=== PATIENT | female | born 1990 | race American Indian/Alaskan Native ===

== ENCOUNTER 2018-09-07 13:10 | Emergency (ER) | payer OTHER ==
[~2018-09-07] VITALS: Ht 162.6 cm; Wt 55.3 kg
== END 2018-09-07 14:45 | disposition home or self-care (01) ==
LOC: ER 13:10
DX: M79.662 Pain in left lower leg (principal); G89.11 Acute pain due to trauma

== ENCOUNTER 2021-09-16 18:33 | Emergency (ER) | payer OTHER ==
[~2021-09-16] VITALS: Ht 162.6 cm; Wt 59.0 kg
== END 2021-09-16 22:22 | disposition home or self-care (01) ==
LOC: ER 18:33
DX: R10.2 Pelvic and perineal pain (principal); N83.201 Unspecified ovarian cyst, right side

== ENCOUNTER 2022-08-20 18:06 | Emergency (ER) | payer OTHER ==
[~2022-08-20] VITALS: Ht 162.6 cm; Wt 58.5 kg
== END 2022-08-20 23:33 | disposition home or self-care (01) ==
LOC: ER 18:06
DX: O20.9 Hemorrhage in early pregnancy, unspecified (principal); Z3A.10 10 weeks gestation of pregnancy

== ENCOUNTER 2022-10-07 14:06 | Outpatient (CLI) | payer OTHER | END 2022-10-07 17:31 | disposition home or self-care (01) | LOC: PRENATAL 14:06 | PROVIDERS: ATTEND Obstetrics & Gynecology Maternal & Fetal Medicine | DX: O36.80X0 Pregnancy with inconclusive fetal viability, not applicable or unspecified (principal); Z36.9 Encounter for antenatal screening, unspecified; Z14.8 Genetic carrier of other disease; O34.40 Maternal care for other abnormalities of cervix, unspecified trimester; Z3A.12 12 weeks gestation of pregnancy ==

== ENCOUNTER 2022-10-22 16:06 | Emergency (ER) | payer OTHER ==
[~2022-10-22] VITALS: Ht 162.6 cm; Wt 58.5 kg
[2022-10-22] MEDS ORDERED: PRENATAL + DHA1 EAC1 (16:26)
== END 2022-10-22 23:24 | disposition home or self-care (01) ==
LOC: ER 16:06
PROVIDERS: General Practice
DX: L30.9 Dermatitis, unspecified (principal); Z3A.01 Less than 8 weeks gestation of pregnancy

== ENCOUNTER 2022-11-10 18:55 | Emergency (ER) | payer OTHER ==
[~2022-11-10] VITALS: Ht 162.6 cm; Wt 60.8 kg
[~2022-11-10 18:55] MED LIST: PRENATAL + DHA1 EAC1
== END 2022-11-10 22:51 | disposition home or self-care (01) ==
LOC: ER 18:55
DX: O99.512 Diseases of the respiratory system complicating pregnancy, second trimester (principal); J06.9 Acute upper respiratory infection, unspecified; Z3A.17 17 weeks gestation of pregnancy; Z20.822 Contact with and (suspected) exposure to COVID-19

== ENCOUNTER 2022-11-29 13:10 | Outpatient (CLI) | payer OTHER ==
[~2022-11-29 13:10] MED LIST changes: +DUI500 PO; +INTESTINEX680 M1 PO
== END 2022-11-29 15:24 | disposition home or self-care (01) ==
LOC: PRENATAL 13:10
PROVIDERS: ATTEND Obstetrics & Gynecology Maternal & Fetal Medicine
DX: O35.3XX0 Maternal care for (suspected) damage to fetus from viral disease in mother, not applicable or unspecified (principal); O34.40 Maternal care for other abnormalities of cervix, unspecified trimester; Z3A.20 20 weeks gestation of pregnancy

== ENCOUNTER 2022-12-05 13:07 | Outpatient (CLI) | payer OTHER ==
[2022-12-05] MEDS ORDERED: PRENATAL CAPLE1 EAC1 PO (14:00)
[2022-12-05] MEDS ORDERED: FOLIC ACID20 MG PO (14:00)
[2022-12-05 14:03] LABS: PH,URINE 7.5 (5.0-8.0); URINE APPEARANCE Cloudy; URINE BILIRRUBIN Negative (NEGATIVE); URINE BLOOD Moderate; URINE COLOR Yellow; URINE GLUCOSE Negative (NEGATIVE); URINE LEUKOCYTE Moderate; URINE NITRATE Negative; URINE PROTEIN Negative (NEGATIVE)
[2022-12-05 14:04] LABS: HEMATOCRIT 37.3 % (36.0-45.00); HEMOGLOBIN 12.3 g/dL (12.0-15.00); MEAN CELL VOLUME 85.4 fL (80.00-100.00); MEAN CORPUSCULAR HEMOGLOBIN 28.3 pg (27.00-32.0); MEAN CORPUSCULAR HGB CONC 33.1 g/dl (32.0-36.0); PLATELET COUNT 236 K/uL (150-450); RED BLOOD COUNT 4.36 M/uL (4.00-6.00); RED CELL DISTRIBUTION WIDTH 12.5 % (11.5-14.5)
[2022-12-05 14:08] LABS: URINE BACTERIA 3752.2 uL (0.0-1933); URINE EPITHELIAL CELLS 97.2 uL (0.0-38.8); URINE RBC 2.1 uL (0.0-20.8); URINE WBC 116.1 uL (0.0-23.2)
[2022-12-05 14:33] LABS: URINE MUCUS SCANT
== END 2022-12-06 09:49 | disposition home or self-care (01) ==
LOC: OBS/DEL 13:07
PROVIDERS: ATTEND Obstetrics & Gynecology
DX: O23.32 Infections of other parts of urinary tract in pregnancy, second trimester (principal); N39.0 Urinary tract infection, site not specified; M62.830 Muscle spasm of back; Z3A.21 21 weeks gestation of pregnancy

== ENCOUNTER 2023-03-05 21:49 | Outpatient (CLI) | payer OTHER ==
[~2023-03-05 21:49] MED LIST changes: +FOLIC ACID20 MG PO; +PRENATAL CAPLE1 EAC1 PO
[2023-03-05 23:13] LABS: HEMATOCRIT 35.9 % (36.0-45.00); HEMOGLOBIN 12.3 g/dL (12.0-15.00); MEAN CELL VOLUME 86.5 fL (80.00-100.00); MEAN CORPUSCULAR HEMOGLOBIN 29.5 pg (27.00-32.0); MEAN CORPUSCULAR HGB CONC 34.1 g/dl (32.0-36.0); PLATELET COUNT 206 K/uL (150-450); RED BLOOD COUNT 4.16 M/uL (4.00-6.00); URINE APPEARANCE Cloudy; URINE BILIRRUBIN Negative (NEGATIVE); URINE BLOOD Small; URINE COLOR Yellow; URINE GLUCOSE Negative (NEGATIVE); URINE LEUKOCYTE Trace; URINE NITRATE Negative; URINE PROTEIN Negative (NEGATIVE)
[2023-03-05 23:17] LABS: URINE BACTERIA 3025.1 uL (0.0-1933); URINE EPITHELIAL CELLS 68.9 uL (0.0-38.8); URINE RBC 127.9 uL (0.0-20.8)
== END 2023-03-06 09:19 | disposition home or self-care (01) ==
LOC: OBS/DEL 21:49
PROVIDERS: ATTEND Obstetrics & Gynecology
DX: O26.893 Other specified pregnancy related conditions, third trimester (principal); O26.853 Spotting complicating pregnancy, third trimester; Z3A.31 31 weeks gestation of pregnancy

== ENCOUNTER 2023-03-28 11:44 | Inpatient (IN) | payer OTHER ==
[~2023-03-28] VITALS: Ht 162.6 cm; Wt 73.0 kg
[2023-04-04] MEDS ORDERED: DIALYVITE 800-1 EACH PO (14:12)
[2023-04-06] MEDS ORDERED: OXYTOCIN 10 UNITS/ML VIAL ONE (08:43)
[2023-04-06] MEDS ORDERED: ERYTHROMYCIN BASE 3.5 GM OINT...G. OP ONE (08:44)
[2023-04-06] MEDS ORDERED: ERYTHROMYCIN BASE 1 GM TUBE OP ONE (10:45)
[2023-04-06] MEDS ORDERED: OXYTOCIN 10 UNITS/ML VIAL IV ONE (10:45)
[2023-04-06 11:56] LABS: ABG PH 7.278 (7.35-7.45); ABG PO2 21.6 mmHg (80-100); ABG pCO2 48.6 mmHg (35-45); SaO2 27.6 %
[2023-04-06 11:57] LABS: BASE EXCESS -4.8 mmol/l; BICARBONATE 22.2 mmol/l (23-25); Tco2 23.7 mmol/l; o2 21 %
[2023-04-06] MEDS ORDERED: ONDANSETRON HCL 2 MG/ML VIAL ONE (12:02)
[2023-04-06] MEDS ORDERED: RINGERS SOLUTION,LACTATED 1,000 ML IV SCH (12:30)
[2023-04-06] MEDS ORDERED: OXYTOCIN 20 UNITS/1000ML RL PIGGYBAG IV ONE (12:30)
[2023-04-06] MEDS ORDERED: PROMETHAZINE HCL 50 MG/ML AMPUL IM SCH (13:00)
[2023-04-06] MEDS ORDERED: MEPERIDINE HCL/PF 50 MG/ML VIAL IM SCH (13:00)
[2023-04-07] MEDS ORDERED: DOCUSATE CALCIUM 240 MG CAPSULE PO PRN (08:00)
[2023-04-07] MEDS ORDERED: PNV,CALCIUM 72/IRON/FOLIC ACID 1 TAB TABLET PO SCH (09:00)
[2023-04-07] MEDS ORDERED: OxyCODONE HCL/APAP UD (PERCOCET) PO SCH (09:00)
[2023-04-07 11:13] LABS: HEMATOCRIT 37.3 % (36.0-45.00); HEMOGLOBIN 12.5 g/dL (12.0-15.00); MEAN CORPUSCULAR HEMOGLOBIN 28.9 pg (27.00-32.0); MEAN CORPUSCULAR HGB CONC 33.6 g/dl (32.0-36.0); PLATELET COUNT 192 K/uL (150-450); RED BLOOD COUNT 4.34 M/uL (4.00-6.00); RED CELL DISTRIBUTION WIDTH 13.1 % (11.5-14.5)
[2023-04-07] MEDS ORDERED: IBUprofen 600 MG TABLET PO SCH (14:24)
[2023-04-08] MEDS ORDERED: FF) RHO(D) IMMUNE GLOBULIN (POM) IM STA (15:39)
== END 2023-04-09 14:32 | disposition home or self-care (01) | DRG 785 ==
LOC: LDR 04-05 10:58 → OB/GYN 04-06 11:23 → LDR 04-18 11:43
PROVIDERS: ADMIT Obstetrics & Gynecology; ATTEND Obstetrics & Gynecology
PROC: 4A1HXCZ Monitoring of Products of Conception, Cardiac Rate, External Approach (ICD-10-PCS; 2023-04-05)
PROC: 0UB70ZZ Excision of Bilateral Fallopian Tubes, Open Approach (ICD-10-PCS; 2023-04-06)
PROC: 10D00Z1 Extraction of Products of Conception, Low, Open Approach (ICD-10-PCS; principal; 2023-04-06 08:00)
DX: O36.8130 Decreased fetal movements, third trimester, not applicable or unspecified (principal); O36.8330 Maternal care for abnormalities of the fetal heart rate or rhythm, third trimester, not applicable or unspecified; Z3A.38 38 weeks gestation of pregnancy; Z37.0 Single live birth; Z30.2 Encounter for sterilization; Z20.822 Contact with and (suspected) exposure to COVID-19

== ENCOUNTER 2023-04-04 12:16 | Outpatient (CLI) | payer OTHER ==
[2023-04-04 14:11] LABS: HEMATOCRIT 37.6 % (36.0-45.00); HEMOGLOBIN 12.8 g/dL (12.0-15.00); MEAN CELL VOLUME 87.7 fL (80.00-100.00); MEAN CORPUSCULAR HEMOGLOBIN 29.8 pg (27.00-32.0); PLATELET COUNT 185 K/uL (150-450); RED BLOOD COUNT 4.29 M/uL (4.00-6.00); RED CELL DISTRIBUTION WIDTH 12.6 % (11.5-14.5)
[2023-04-04] MEDS ORDERED: DIALYVITE 800-1 EACH PO (14:12)
[2023-04-04 14:33] LABS: URINE APPEARANCE Cloudy; URINE BILIRRUBIN Negative (NEGATIVE); URINE BLOOD Moderate; URINE COLOR Yellow; URINE GLUCOSE Negative (NEGATIVE); URINE LEUKOCYTE Trace; URINE NITRATE Negative; URINE PROTEIN Negative (NEGATIVE)
[2023-04-04 14:36] LABS: URINE BACTERIA 132.2 uL (0.0-1933); URINE EPITHELIAL CELLS 7.8 uL (0.0-38.8); URINE RBC 224.7 uL (0.0-20.8); URINE WBC 16.2 uL (0.0-23.2)
[2023-04-04 14:59] LABS: INR 0.98; PARTIAL THROMBOPLASTIN TIME 29.3 SECONDS (22.0-34.0); PROTHROMBIN TIME 10.3 SECONDS (9.0-11.5)
== END 2023-04-05 10:56 | disposition still patient (30) ==
LOC: OBS/DEL 12:16
PROVIDERS: ATTEND Obstetrics & Gynecology
DX: O26.893 Other specified pregnancy related conditions, third trimester (principal)

== ENCOUNTER 2023-04-13 18:07 | Inpatient (IN) | payer OTHER ==
[~2023-04-13] VITALS: Ht 162.6 cm; Wt 65.3 kg
[~2023-04-13 18:07] MED LIST changes: +DIALYVITE 800-1 EACH PO
[2023-04-13] MEDS ORDERED: 0.9 % SODIUM CHLORIDE 1,000 ML IV STA (18:56)
[2023-04-13] MEDS ORDERED: CEFTRIAXONE SODIUM 1,000 MG VIAL IV ONE (19:15)
[2023-04-13 19:24] LABS: HEMATOCRIT 32.2 % (36.0-45.00); HEMOGLOBIN 10.9 g/dL (12.0-15.00); MEAN CELL VOLUME 86.6 fL (80.00-100.00); MEAN CORPUSCULAR HEMOGLOBIN 29.3 pg (27.00-32.0); MEAN CORPUSCULAR HGB CONC 33.9 g/dl (32.0-36.0); PLATELET COUNT 386 K/uL (150-450); RED BLOOD COUNT 3.71 M/uL (4.00-6.00)
[2023-04-13 19:38] LABS: CALCIUM 8.6 mg/dL (8.5-10.1); CREATININE SERUM 0.56 mg/dL (0.55-1.02); GFR 126.26; POTASSIUM 4.16 mEq/L (3.5-5.1)
[2023-04-13] MEDS ORDERED: CEFAZOLIN SODIUM 2,000 MG in DEXTROSE 5 % IN WATER 100 ML IV SCH (20:23)
[2023-04-13] MEDS ORDERED: 0.9 % SODIUM CHLORIDE 1,000 ML IV SCH (20:30)
[2023-04-14 03:09] LABS: PH,URINE 6.5 (5.0-8.0); URINE APPEARANCE Turbid; URINE BILIRRUBIN Negative (NEGATIVE); URINE BLOOD Large; URINE COLOR Yellow; URINE GLUCOSE Negative (NEGATIVE); URINE LEUKOCYTE Large; URINE NITRATE Negative; URINE PROTEIN 30 (NEGATIVE)
[2023-04-14 03:13] LABS: URINE BACTERIA 1031.9 uL (0.0-1933); URINE EPITHELIAL CELLS 22.5 uL (0.0-38.8); URINE RBC 472.8 uL (0.0-20.8); URINE WBC 4975.1 uL (0.0-23.2)
[2023-04-14] MEDS ORDERED: ACETAMINOPHEN 500 MG GEL..CAP PO PRN (08:45)
[2023-04-15 06:10] LABS: HEMATOCRIT 29.2 % (36.0-45.00); HEMOGLOBIN 9.9 g/dL (12.0-15.00); MEAN CELL VOLUME 86.7 fL (80.00-100.00); MEAN CORPUSCULAR HEMOGLOBIN 29.5 pg (27.00-32.0); PLATELET COUNT 389 K/uL (150-450); RED BLOOD COUNT 3.37 M/uL (4.00-6.00); RED CELL DISTRIBUTION WIDTH 13.2 % (11.5-14.5)
[2023-04-16] MEDS ORDERED: CHLORHEXIDINE GLUCONATE 120 ML BOTTLE TOP SCH (17:00)
== END 2023-04-18 10:41 | disposition home or self-care (01) | DRG 776 ==
LOC: ER 18:07 → OB/GYN 20:46
PROVIDERS: Emergency Medicine; Obstetrics & Gynecology; ADMIT Obstetrics & Gynecology; ATTEND Obstetrics & Gynecology
PROC: BW4GZZZ Ultrasonography of Pelvic Region (ICD-10-PCS; principal; 2023-04-13)
PROC: 8E0ZXY6 Isolation (ICD-10-PCS; 2023-04-13)
DX: O86.09 Infection of obstetric surgical wound, other surgical site (principal); B95.61 Methicillin susceptible Staphylococcus aureus infection as the cause of diseases classified elsewhere; Z20.822 Contact with and (suspected) exposure to COVID-19

== ENCOUNTER 2024-07-12 16:44 | Emergency (ER) | payer OTHER ==
[~2024-07-12] VITALS: Ht 162.6 cm; Wt 62.1 kg
[2024-07-12] MEDS ORDERED: CEFTRIAXONE SODIUM 1,000 MG VIAL IV ONE (20:00)
[2024-07-12] MEDS ORDERED: KETOROLAC TROMETHAMINE 30 MG VIAL IV ONE (20:00)
[2024-07-12] MEDS ORDERED: CEFTRIAXONE SODIUM 1,000 MG VIAL ONE (20:03)
[2024-07-12] MEDS ORDERED: KETOROLAC TROMETHAMINE 30 MG VIAL ONE (20:03)
[2024-07-12 20:52] LABS: BASO % 0.5 % (0.1-1.2); EOS % 0.6 % (0.7-7.0); HEMOGLOBIN 13.2 g/dL (11.2-15.7); LYMPH % 19.6 % (19.3-53.1); MONO % 7.9 % (4.7-12.5); NEUT % 71.2 % (34.0-71.1); PLATELET COUNT 282 K/uL (163-369); RED BLOOD COUNT 4.71 M/uL (3.93-5.22)
[2024-07-12 20:53] LABS: EOS # 0.06 (0.04-0.54); LYMPH # 1.96 (1.18-3.74); MONO # 0.79 (0.24-0.82); NEUT # 7.14 (1.56-6.13)
[2024-07-12 21:05] LABS: PH,URINE 8.5 (5.0-8.0); URINE APPEARANCE Clear; URINE BILIRRUBIN Negative (NEGATIVE); URINE BLOOD Negative; URINE COLOR Yellow; URINE GLUCOSE Negative (NEGATIVE); URINE KETONE Negative (NEGATIVE); URINE LEUKOCYTE Trace; URINE NITRATE Negative; URINE PROTEIN Trace (NEGATIVE)
[2024-07-12 21:06] LABS: URINE BACTERIA 124.8 uL (0.0-1933); URINE EPITHELIAL CELLS 27.2 uL (0.0-38.8); URINE RBC 26.2 uL (0.0-20.8); URINE WBC 38.1 uL (0.0-23.2)
[2024-07-12 21:07] LABS: URINE CAST 0.29 uL (0.0-1.40)
[2024-07-12 21:12] LABS: ALBUMIN 3.7 gm/dL (3.4-5.0); BILIRUBIN TOTAL 0.72 mg/dL (0.3-1.2); CALCIUM 8.7 mg/dL (8.5-10.1); CREATININE SERUM 0.59 mg/dL (0.55-1.02); GFR 118.12; GLOBULINA 4.1 G/DL (2.4-3.5); POTASSIUM 4.34 mEq/L (3.5-5.1); TOTAL PROTEIN 7.8 gm/dL (6.4-8.2)
[2024-07-12] MEDS ORDERED: TAMSULOSIN HCL 0.4 MG CAP PO ONE ×2 (23:00→23:09)
[2024-07-12] MEDS ORDERED: KETO10TA2 PO (23:02)
[2024-07-12] MEDS ORDERED: CEPHALEXIN500 MG PO (23:02)
[2024-07-12] MEDS ORDERED: TAMS0.4C PO (23:02)
== END 2024-07-12 23:16 | disposition home or self-care (01) ==
LOC: ER 16:44
PROVIDERS: General Practice
DX: N20.1 Calculus of ureter (principal); N83.299 Other ovarian cyst, unspecified side; N20.0 Calculus of kidney